=== PATIENT | female | born 1945 | race Caucasian/White ===

== ENCOUNTER 2021-04-14 07:27 | Day surgery (SDC) | payer MEDICARE, OTHER ==
[~2021-04-14 07:27] MED LIST: Lactated Ringers 1,000 ML IV SCH
--- NOTE | 2021-04-14 08:06 | PCM.PREANE ---
Preanesthetic Assessment - Anesthesia/Transfusion/Family Hx Anesthesia History: Prior Anesthesia Without Reaction Family History of Anesthesia Reaction: No Transfusion History: No Prior Transfusion(s) - Review of Systems General: No Symptoms Pulmonary: No Symptoms Cardiovascular: No Symptoms Gastrointestinal: No Symptoms Neurological: No Symptoms Other: Reports: None - Physical Assessment NPO Status Date: 04/14/21 NPO Status Time: 00:00 Vital Signs: Last Vital Signs Temp 97.9 F 04/14/21 07:54 Pulse 65 04/14/21 07:54 Resp 16 04/14/21 07:54 BP 140/77 04/14/21 07:54 Pulse Ox 97 04/14/21 07:54 Height: 5 ft 4 in Weight: 129 lb Mental Status: Alert & Oriented x3 Airway Class: Mallampati = 2 Dentition: Reports: Normal Dentition Thyro-Mental Finger Breadths: 2 Mouth Opening Finger Breadths: 2 ROM/Head Extension: Full Lungs: Clear to Auscultation, Normal Respiratory Effort Cardiovascular: Regular Rate, Regular Rhythm - Allergies Allergies/Adverse Reactions: Allergies Allergy/AdvReac Type Severity Reaction Status Date / Time atorvastatin calcium Allergy Muscle Verified 04/10/21 10:58 [From Lipitor] Aches colesevelam HCl Allergy Muscle Verified 04/10/21 10:58 [From WelChol] Aches Sulfa (Sulfonamide Allergy Wheezing Verified 04/10/21 10:58 Antibiotics) - Acknowledgements Anesthesia Type Planned: General Anesthesia Pt an Appropriate Candidate for the Planned Anesthesia: Yes Alternatives and Risks of Anesthesia Discussed w Pt/Guardian: Yes Pt/Guardian Understands and Agrees with Anesthesia Plan: Yes PreAnesthesia Questionnaire HEENT History: Reports: Macular Degeneration, Other (See Below) Other HEENT History: Macular "hole", uses reading glasses Cardiovascular History: Reports: Heart Murmur, High Cholesterol Other Cardiovascular History: doctors can't always hear it, does not see a Cardioligist Respiratory History: Reports: Sleep Apnea Other Respiratory History: uses CPAP every night Gastrointestinal History: Reports: Colon Polyp, Hemorrhoids Other Gastrointestinal History: occasional heartburn Genitourinary History: Reports: None LEGAL AIDE History: Reports: Musculoskeletal History: Reports: Osteoarthritis, Other (See Below) Other Musculoskeletal History: had a steroid inhection in groin area last week for pain- didn't work so will have a back injection next Neurological History: Reports: Other (See Below) Other Neuro History: hx of motion sickness Psychiatric History: Reports: Anxiety Endocrine/Metabolic History: Reports: None Hematologic History: Reports: None Immunologic History: Reports: None Oncologic (Cancer) History: Reports: Basal Cell Carcinoma Dermatologic History: Reports: None - Past Surgical History Head Surgeries/Procedures: Reports: None HEENT Surgical History: Reports: Tonsillectomy Cardiovascular Surgical History: Reports: None Respiratory Surgical History: Reports: None GI Surgical History: Reports: Colonoscopy, Other (See Below) Other GI Surgeries/Procedures: previous hemorrhoidectomy and is currently having trouble with hemorrhoids Female Surgical History: Reports: Breast Biopsy, Hysterectomy, Tubal Ligation, Other (See Below) Other Female Surgeries/Procedures: had a "female" surgery for prolapse 2 weeks ago Endocrine Surgical History: Reports: None Neurological Surgical History: Reports: None Musculoskeletal Surgical History: Reports: None Other Oncologic Surgeries/Procedures: 2 skin cancer spots removed from chest Dermatological Surgical History: Reports: None - SUBSTANCE USE Tobacco Use Status *Q: Never Tobacco User Recreational Drug Use History: No - HOME MEDS Home Medications: Home Meds Rosuvastatin [Crestor] 5 mg PO DAILY 04/28/14 [History] Fish Oil/DHA/EPA [Fish Oil 1,200 MG] 1 tab PO BID 01/09/16 [History] Multivit with Minerals/Lutein [Vision Plus Lutein Vitamin] 1 tab PO DAILY 01/09/16 [History] Cartilage/Collagen/Bor/Hyalur [Joint Health Tablet] 2 cap PO DAILY 04/10/21 [History] Sertraline HCl 50 mg PO DAILY 04/10/21 [History] - CURRENT (IN HOUSE) MEDS Current Meds: Current Medications Lactated Ringer's (Ringers, Lactated) 1,000 mls @ 125 mls/hr IV ASDIRECTED ANISA Last Admin: 04/14/21 07:47 Dose: 125 mls/hr Documented by:
[2021-04-14] MEDS ORDERED: propofoL 50 ML ONE (08:35)
[2021-04-14] MEDS ORDERED: Propofol 200 MG/20 ML SDV ONE (09:13)
--- NOTE | 2021-04-14 09:44 | PCM.OPNOTE ---
- General Post-Op/Procedure Note Date of Surgery/Procedure: 04/14/21 Operative Procedure(s): Colonoscopy Pre Op Diagnosis: Personal history of colon polyps. Post-Op Diagnosis: Mild sigmoid diverticulosis. No colonic polyps. Anesthesia Technique: MAC (ASA II) Primary Surgeon: Dre Gutierrez Condition: Good Free Text/Narrative:: DICTATION 978189 CPT CODE 87847
[2021-04-14] MEDS ORDERED: Lactated Ringers 1,000 ML IV SCH (09:45)
--- NOTE | 2021-04-14 09:45 | PCM.POSTAN ---
POST ANESTHESIA ASSESSMENT - MENTAL STATUS Mental Status: Alert, Oriented - VITAL SIGNS Vital Signs: Last Vital Signs Temp 97.9 F 04/14/21 09:39 Pulse 60 04/14/21 09:39 Resp 15 04/14/21 09:39 BP 93/44 L 04/14/21 09:39 Pulse Ox 99 04/14/21 09:39 - RESPIRATORY Respiratory Status: Respiratory Rate WNL, Airway Patent, O2 Saturation Stable - CARDIOVASCULAR CV Status: Pulse Rate WNL, Blood Pressure Stable - GASTROINTESTINAL GI Status: No Symptoms - POST OP HYDRATION Hydration Status: Adequate & Stable
--- NOTE | 2021-04-14 09:45 | PCM48HPAN ---
Post Anesthesia Note - EVALUATION WITHIN 48HRS OF ANESTHETIC Vital Signs in Normal Range: Yes Patient Participated in Evaluation: Yes Respiratory Function Stable: Yes Airway Patent: Yes Cardiovascular Function Stable: Yes Hydration Status Stable: Yes Pain Control Satisfactory: Yes Nausea and Vomiting Control Satisfactory: Yes Mental Status Recovered: Yes Vital Signs: Last Vital Signs Temp 97.9 F 04/14/21 09:39 Pulse 60 04/14/21 09:39 Resp 15 04/14/21 09:39 BP 93/44 L 04/14/21 09:39 Pulse Ox 99 04/14/21 09:39
--- NOTE | 2021-04-14 10:41 | OR ---
SURGEON: Dre Gutierrez M.D. DATE OF PROCEDURE: 04/14/2021 OPERATION PERFORMED: Colonoscopy. PRIMARY SURGEON: Dre Gutierrez MD ANESTHESIA: MAC. ASA CLASSIFICATION: II. PREOPERATIVE DIAGNOSIS: Personal history of colon polyps. POSTOPERATIVE DIAGNOSIS: Mild sigmoid diverticulosis. DESCRIPTION OF PROCEDURE: The patient was taken to the endoscopy room and positioned on the endoscopy table in the left lateral decubitus position. Time-out was called for appropriate identification of the patient and procedure. Monitored anesthesia care was provided. The colonoscope was inserted into the rectum and advanced with moderate difficulty to the cecum. The patient did have a very tortuous colon. Once we had entered the cecum, the colonoscope was retroflexed to visualize the ascending colon from below. The cecum was identified by internal landmarks and external pressure. The colonoscope was then straightened and slowly withdrawn. The cecum, ascending colon, hepatic flexure, transverse colon, splenic flexure, and descending colon showed no tumors, polyps, diverticula, or angiodysplastic changes. The sigmoid colon itself demonstrated few scattered diverticula. No stricture, spasm, or bleeding was noted. No polyps were encountered in the sigmoid colon. Once the colonoscope was withdrawn to the rectum, it was retroflexed to visualize the anal orifice from above. No tumors or polyps were seen, and there were no acute hemorrhoidal changes. The colonoscope was then straightened, the rectum aspirated, and the colonoscope removed. The patient tolerated the procedure well and was taken to recovery room in stable condition. NIRALI / JOHN /[id number]
== END 2021-04-14 10:28 | disposition home or self-care (01) ==
LOC: MW.SDS 07:27
PROVIDERS: ATTEND Surgery
DX: Z12.11 Encounter for screening for malignant neoplasm of colon (principal); K57.30 Diverticulosis of large intestine without perforation or abscess without bleeding; G47.30 Sleep apnea, unspecified; E78.00 Pure hypercholesterolemia, unspecified; M19.90 Unspecified osteoarthritis, unspecified site; Z88.2 Allergy status to sulfonamides; Z88.8 Allergy status to other drugs, medicaments and biological substances; Z86.010 Personal history of colon polyps
CPT/HCPCS: G0105; J2704; J7120; 00812; 99100